=== PATIENT | female | born 1965 | race Caucasian/White ===

== ENCOUNTER → 2017-01-17 | Day surgery (SDC) | payer OTHER ==
[~2017-01-17] VITALS: Ht 175.3 cm; Wt 63.5 kg
[~2017-01-17] MED LIST: 0.9% Sodium Chloride 1,000 ML IV PRN; NOMED; Sodium Chloride LOK Flush 10 mL Syringe IV PRN; fentaNYL-PF 50 mCg/mL 2 mL Inj IVPUSH PRN
[2017-01-17 08:31] VITALS: BP 113/74; PULSE 56; RESP 17; O2SAT 99
[2017-01-17 09:26] VITALS: BP 93/54; PULSE 47; O2SAT 99
[2017-01-17 09:36] VITALS: BP 92/55; PULSE 48; O2SAT 100
[2017-01-17 09:40] VITALS: BP 99/68; PULSE 68; O2SAT 100
--- NOTE | 2017-01-17 09:56 | ENDO ---
[address] [address] ENDOSCOPY PROCEDURE PATIENT: SHERMAN WORKMAN : 1965 MR#: [id number] ADMIT: 01/17/2017 JOB ID: [id number] PRIMARY PROVIDER: Jennifer Lagunas MD PROCEDURE: Colonoscopy. INDICATIONS: A 51-year-old female who reports for colon cancer screening. EQUIPMENT: PCF-H180-AL. SEDATION: 5 mg Versed, 100 mcg fentanyl. COMPLICATIONS: None identified. BOWEL PREPARATION: Fair at best. Copious amounts of irrigation was required to suction up residual liquid stool debris. PROCEDURE INFORMATION: After the risks and benefits were explained, written and verbal informed consent was obtained. The patient was brought into the endoscopy suite and placed in the left lateral decubitus position. Sedation was achieved using the above-stated medications with the addition of oxygen via nasal cannula. A digital rectal examination was accomplished. No significant pathology appreciated. The scope was introduced into the rectum and advanced to the cecum as identified by the appendiceal orifice and ileocecal valve. The scope was slowly withdrawn to carefully examine the mucosa for any defects or lesions. Multiple direct views were made through the dentate line for exclusion of pathology. The colon was decompressed, the scope removed from the patient who tolerated the procedure well. FINDINGS: No significant polyps, mass lesions, or inflammatory features identified throughout. A challenging tortuous exam all the way to cecum. Copious amounts of suction were required as described above. ENDOSCOPIC DIAGNOSIS: Within the limitations of bowel prep, visually unremarkable colonoscopy. RECOMMENDATIONS: Repeat colonoscopy in 5-7 years considering the slightly suboptimal bowel prep today. The patient is encouraged to maintain regularity with 2 tablespoons ground flaxseed mixed with 8 ounces of water, juice or the medium of her choice daily.
== END | disposition home or self-care (01) ==
LOC: END 00:32
PROVIDERS: ATTEND Internal Medicine Gastroenterology
DX: Z12.11 Encounter for screening for malignant neoplasm of colon (principal)
CPT/HCPCS: 99153; G0121; G0500; J2250; J3010; J7030